=== PATIENT | male | born 2000 | race Caucasian/White ===

== ENCOUNTER 2018-08-09 21:15 | Emergency (ER) | payer SELFPAY ==
[~2018-08-09] VITALS: Ht 162.6 cm; Wt 59.0 kg
[2018-08-10 02:53] LABS: CLARITY URINE TURBID (CLEAR); COLOR URINE YELLOW (YELLOW); KETONES URINE NEGATIVE (NEGATIVE); LEUKOCYTE ESTERASE URINE NEGATIVE (NEGATIVE); NITRITE URINE NEGATIVE (NEGATIVE); OCCULT BLOOD URINE NEGATIVE (NEGATIVE); PROTEIN URINE NEGATIVE (NEGATIVE); SPECIFIC GRAVITY URINE 1.021 (1.005-1.030)
[2018-08-10 03:44] VITALS: BP 114/74
== END 2018-08-10 03:49 | disposition home or self-care (01) ==
LOC: ER 21:15
DX: R35.0 Frequency of micturition (principal); R03.0 Elevated blood-pressure reading, without diagnosis of hypertension
CPT/HCPCS: 99283